=== PATIENT | male | born 1975 | race Caucasian/White ===

== ENCOUNTER → 2025-04-11 08:33 | Outpatient (CLI) | payer OTHER, SELFPAY ==
--- NOTE | 2025-04-11 08:37 | DI.CT.S_ITS ---
PROCEDURE: CT ABDOMEN PELVIS W CON INDICATIONS: GANGLIONELIROMA TECHNIQUE: After the administration of intravenous contrast, axial sections acquired from the lung bases to the pubic symphysis. Coronal and sagittal reformats were performed. For radiation dose reduction, the following was used: automated exposure control, adjustment of mA and/or kV according to patient size. COMPARISON: [facility], CT, CT BIOPSY ABDOMEN OR RETROPERITONEAL, 04/27/2023, 8:26. Outside Film, CT, CT ABDOMEN PELVIS WITHOUT CONTRAST, 02/16/2023, 12:10. FINDINGS: Image quality: Diagnostic. Lower Chest: No significant findings. ABDOMEN: Liver: No solid mass. Gallbladder: No radiopaque gallstones or wall thickening. Biliary ducts: No biliary dilation. Pancreas: No ductal dilation. Spleen: Size is within normal limits. Adrenal Glands: No adrenal nodules. Kidneys and Ureters: Previously described 4 x 3.8 cm right para renal space lesion remains unchanged in size and appearance series 2, image 48. This structure measures 28 Hounsfield unit in density and is also unchanged. No definite connection with adjacent right kidney is noted. Bilateral nonobstructing renal calculi are again seen unchanged from prior study.. No hydronephrosis. No solid renal lesion. No complex renal cystic lesion which requires follow up. Stomach and Bowel: There is no bowel obstruction. No abnormal bowel wall thickening or mesenteric fat stranding. No abscess collection. Sigmoid diverticulosis without CT evidence of acute diverticulitis. Peritoneum: No abnormal intraperitoneal fluid. No free air. Ventral Wall: No significant ventral hernia. Abdominal Nodes: No retroperitoneal or mesenteric adenopathy by size criteria. Vessels: Aorta and inferior vena cava are normal in size. PELVIS: Pelvic Organs: Enlarged prostate gland with mass effect on floor of bilateral urinary bladder is seen.. Bladder: Mild diffuse bladder wall thickening is seen. No solid appearing renal lesion or calcified bladder stones. Pelvic Nodes: No enlarged lymph nodes. Miscellaneous: No inguinal hernias are seen. Bones: No aggressive osseous abnormality. IMPRESSION: 1. Stable 4 x 3.8 cm hypodense lesion involving right para renal space, please correlate with prior biopsy result. No new suspicious peritoneal retroperitoneal neoplasm is seen. No abdominal or pelvic lymphadenopathy by size criteria. 2. Tiny bilateral nonobstructing renal calculi. No hydronephrosis or hydroureter. 3. Mild diffuse bladder wall thickening, concerning for cystitis. No solid appearing bladder mass or calcified bladder stones. Enlarged prostate gland. 4. No bowel obstruction or abnormal bowel wall thickening. No abscess collection. Sigmoid diverticulosis without CT evidence of acute diverticulitis. No free fluid or free air. Dictated by: Raza Cordero M.D. on 04/11/2025 at 16:42 Approved by: Raza Cordero M.D. on 04/11/2025 at 16:54
== END ==
PROVIDERS: PCP Urology; Referring Provider Urology; Visit Provider Urology
DX: D36.10 Benign neoplasm of peripheral nerves and autonomic nervous system, unspecified (principal); R93.89 Abnormal findings on diagnostic imaging of other specified body structures; N20.0 Calculus of kidney; K57.30 Diverticulosis of large intestine without perforation or abscess without bleeding; N40.0 Benign prostatic hyperplasia without lower urinary tract symptoms
CPT/HCPCS: 74177; Q9967